=== PATIENT | male | born 1990 | race Caucasian/White ===

== ENCOUNTER 2021-06-21 22:31 | Emergency (ER) | payer BC, SELFPAY ==
[2021-06-21 22:32] VITALS: BP 140/75; PULSE 106; RESP 24; TEMP 36.6; O2SAT 96; BMI 37.3
--- NOTE | 2021-06-21 22:53 | EDS_ITS ---
HPI HPI - URI History of Present Illness Chief Complaint: Shortness of Breath Narrative Narrative: Patient denies significant past medical history presents with cough, runny nose, shortness of breath and wheezing since Friday, 4 days ago. He denies any fever currently, stating that his fever was present at around 100 ?F or just above it, and he has been taking Tylenol which would not break his fever, but which subsided. After the dose wears off, he states he becomes febrile again. He has had a nonproductive cough and runny nose. 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 He has had his COVID immunizations, but also states that he had COVID twice and this does not feel anything like it. Of note, he does vape/smoke. He presents because of the upper respiratory infection type symptoms and the difficulty breathing and wheezing on occasion. ROS ROS ED ROS Narrative Constitutional: Positive fever that is controlled with Tylenol but returns, no chills. HEENT: No sore throat. No neck pain. No loss of vision. Positive rhinorrhea with nasal congestion. Cardiovascular: No chest pain. No palpitations. No pedal edema. Respiratory: Positive cough, positive shortness of breath. Dyspnea on exertion. Audible expiratory wheezing. Abdominal: No abdominal pain. No nausea. No vomiting. Genitourinary: No dysuria. No hematuria. Musculoskeletal: No myalgias. No arthralgias. Neurologic: No headaches. No dizziness. No lightheadedness. Skin: No rash. No change in color. Psychiatric: No depression. No anxiety. PFSH PFSH Medical History Anxiety Asthma Chronic pain Depression GERD (gastroesophageal reflux disease) Migraines Sleep apnea Smoker Home Medications albuterol sulfate [Ventolin HFA] 1 - 2 puff INHALATION Q4H PRN PRN #1 ea 06/22/21 [Rx Last Taken Unknown] prednisone 40 mg PO DAILY #14 tab 06/22/21 [Rx Last Taken Unknown] Allergy/AdvReac Type Severity Reaction Status Date / Time No Known Allergies Allergy Verified 06/21/21 22:35 Social History Smoking Status: Current every day smoker tobacco type: e-cigarettes EXAM Physical Exam Narrative Exam Narrative: Afebrile. Vital signs noted. HEENT: Normocephalic. Atraumatic. PERRL, EOMI. Neck soft and supple. No point tenderness or step off. Mild noted nasal congestion. Cardiovascular: Regular rate and rhythm with intermittent tachycardia. No murmurs, rubs, or gallops appreciated. Respiratory: No tachypnea. Occasional expiratory wheeze that clears with coughing. Speaking in full sentences. Occasional nonproductive cough on examination. Gastrointestinal: Abdomen soft, nontender, with normoactive bowel sounds. No rebound or guarding. Neurological: Awake. Alert. Nonfocal, nonlateralizing. Skin: No rash. Normal color. No pallor. Musculoskeletal: No pedal edema. Full range of motion extremities. Const Vital Signs: 06/21/21 22:32 06/21/21 23:00 06/21/21 23:05 Temperature 98 F Temperature Source Temporal Pulse Rate 106 H 98 Respiratory Rate 24 H 18 Respiratory Effort Short of Breath Respiratory Depth Normal Respiratory Pattern Normal Blood Pressure 140/75 H Blood Pressure Mean 96 Pulse Ox 96 Oxygen Delivery Method Room Air MDM MDM MDM Narrative Medical decision making narrative: Patient is afebrile here. Pulse ox is 96% on room air. Smoking cessation was discussed. He was given DuoNeb aerosolized treatment and started on prednisone 60 mg orally as a loading dose. I discussed the use of respiratory swabs with him, but he is outside the window for Tamiflu should this be influenza. Chest x-ray in 1 view was interpreted by myself. It shows no evidence of acute process, no infiltrate, no pneumothorax. Patient requested a Mucinex here. I will write him a prescription for an albuterol inhaler and for a prednisone burst of 40 mg for the next 7 days. He will pickle processor [id number] Mucinex to take as needed. At this point in time, I feel he can be discharged safely home with follow-up. Return instructions to the emergency department were reviewed. Disposition is discharged home in stable condition. Radiography Diagnostic Testing: Clinical Impression(s) from Imaging Studies Chest X-Ray 06/21/21 23:32 IMPRESSION: No acute radiographic abnormalities. Electronically Signed: Greg Munguia MD at 23:51 EDT , Discharge Plan Triage Chief Complaint: Shortness of Breath ED Provider: Pablo Donis Dx/Rx/DC Orders Clinical Impression: Acute bronchitis with bronchospasm, URI (upper respiratory infection) Instructions: ED Bronchitis with Wheezing (Adult), ED URI, Viral, No Abx (Adult) Prescriptions: New albuterol sulfate [Ventolin HFA] 90 mcg/actuation HFA aerosol inhaler 1 - 2 puff inhalation Q4H PRN PRN (Reason: Wheezing) Qty: 1 RF: 0 prednisone 20 mg tablet 40 mg PO DAILY Qty: 14 RF: 0 Primary Care Provider: Care Physician,No Primary Referrals: Care Physician,No Primary [Primary Care Provider] - Disposition Disposition: Home, Self Care
[2021-06-21] MEDS: Ipratropium/Albuterol Sulfate 3 ML AMPUL.NEB INHALATION (23:04)
[2021-06-21 23:05] VITALS: PULSE 98; RESP 18
[2021-06-21] MEDS: predniSONE 20 MG Tablet 60 MG PO (23:07)
--- NOTE | 2021-06-21 23:32 | RAD_ITS ---
INDICATION: Cough, SOB EXAMINATION/TECHNIQUE: X-RAY - XR Chest 1 View COMPARISON: None. FINDINGS: The lungs are clear. The cardiomediastinal silhouette is unremarkable. No pleural effusion or pneumothorax. No acute osseous abnormalities. RAD/Chest 1 View (Portable) IMPRESSION: No acute radiographic abnormalities. Electronically Signed: Greg Munguia MD at 23:51 EDT ,
[2021-06-22] MEDS: guaiFENesin 1,200 MG Tablet 1200 MG PO (00:41)
[2021-06-22 00:44] VITALS: PULSE 91; RESP 18; O2SAT 95
== END 2021-06-22 00:46 | disposition home or self-care (01) ==
PROVIDERS: Emergency Provider Emergency Medicine; Visit Provider Emergency Medicine
DX: J20.9 Acute bronchitis, unspecified (principal); J06.9 Acute upper respiratory infection, unspecified; F17.290 Nicotine dependence, other tobacco product, uncomplicated; Z86.16 Personal history of COVID-19
CPT/HCPCS: 71045; 94640; 99283